=== PATIENT | female | born 1970 | race Two or more races ===

== ENCOUNTER 2023-07-17 05:36 | Day surgery (SDC) | payer OTHER ==
[~2023-07-17 05:36] MED LIST: EZETIMIBE10 MG PO; PROTONIX40 MG PO; ZESTRIL10 M1 PO
[2023-07-17] MEDS ORDERED: PERCOCET 5-3251 EACH PO (13:35)
[2023-07-17] MEDS ORDERED: RECTICARE30 GM TOP (13:36)
== END 2023-07-17 14:50 | disposition home or self-care (01) ==
LOC: CIR.AMB 05:36
PROVIDERS: ATTEND Surgery
DX: K62.0 Anal polyp (principal); K62.1 Rectal polyp; D12.9 Benign neoplasm of anus and anal canal; A63.0 Anogenital (venereal) warts; Z88.0 Allergy status to penicillin; I10 Essential (primary) hypertension